=== PATIENT | male | born 2000 | race Two or more races ===

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

== ENCOUNTER 2022-03-11 11:00 | Emergency (ER) | payer OTHER, MEDICAID ==
[~2022-03-11] VITALS: Ht 170.2 cm; Wt 68.0 kg
[2022-03-11 14:42] VITALS: BP 124/69
[2022-03-11] MEDS ORDERED: HYDROmorphone HCL 2 MG/ML VL/or syr IV ONE (14:45)
== END 2022-03-11 15:31 | disposition home or self-care (01) ==
LOC: ER 11:00 → EDBD 11:00 → ER 15:31
DX: S83.014A Lateral dislocation of right patella, initial encounter (principal); X58.XXXA Exposure to other specified factors, initial encounter; Y93.89 Activity, other specified; Y92.89 Other specified places as the place of occurrence of the external cause; Y99.8 Other external cause status
CPT/HCPCS: 27560; 73560; 73562; 99284; J1170

== ENCOUNTER 2023-07-31 14:24 | Emergency (ER) | payer OTHER, MEDICAID ==
[~2023-07-31] VITALS: Ht 162.6 cm; Wt 47.2 kg
[2023-07-31 15:30] VITALS: BP 113/64; PULSE 100; RESP 18; TEMP 99; O2SAT 96
[2023-07-31] MEDS ORDERED: NAPR-746 PO (16:26)
== END 2023-07-31 16:32 | disposition home or self-care (01) ==
LOC: ER 14:24
DX: M70.51 Other bursitis of knee, right knee (principal); Z79.899 Other long term (current) drug therapy
CPT/HCPCS: 73562

== ENCOUNTER 2023-09-17 09:44 | Emergency (ER) | payer MEDICAID ==
[~2023-09-17] VITALS: Ht 175.3 cm; Wt 40.7 kg
[~2023-09-17 09:44] MED LIST: NAPR-746 PO
[2023-09-17 15:22] LABS: Eosinophils # (auto) 0.3 10 ^3/uL (0-0.8); Hemoglobin 8.4 g/dL (13.5-17.5); Monocytes # (auto) 0.5 10 ^3/uL (0-1.3); Neutrophils # (auto) 5.1 10 ^3/uL (1.6-8.6)
[2023-09-17 15:25] LABS: Basophils # (auto) 0.2 10 ^3/uL (0-0.2); Basophils % (auto) 2.1 % (0.0-2.0); Eosinophils % (auto) 3.1 % (0.0-7.0); Hematocrit 26.8 % (41.0-53.0); Lymphocytes % (auto) 24.9 % (10.0-50.0); Mean Corpuscular Hemoglobin 25.8 pg (28.0-32.0); Mean Corpuscular Hgb Conc. 31.3 g/dL (32.0-36.0); Mean Corpuscular Volume 82.2 fL (80.0-100.0); Monocytes % (auto) 6.3 % (0.0-12.0); Neutrophils % (auto) 63.6 % (37.0-80.0); Red Blood Cells 3.26 10^6/uL (4.5-5.90); Red Cell Distribution Width 15.3 % (11.8-14.3)
[2023-09-17 15:42] LABS: Alanine Aminotransferase 91 U/L (7-40); Albumin 4.5 g/dL (3.2-4.8); Alkaline Phosphatase 98 U/L (46-116); Anion Gap 6 (5-15); Aspartate Aminotransferase 46 U/L (13-40); BUN/Creatinine Ratio 17.9 (10.0-20.0); Blood Urea Nitrogen 10 mg/dL (9-23); Carbon Dioxide 29 mmol/L (20-30); Chloride 104 mmol/L (98-107); Glucose 90 mg/dL (74-106); Sodium 139 mmol/L (136-145)
[2023-09-17 15:43] LABS: Bilirubin, Total 0.3 mg/dL (0.2-1.0); Total Protein 8.3 g/dL (5.7-8.2)
[2023-09-17] MEDS ORDERED: FER325T PO (17:02)
[2023-09-17 17:15] VITALS: BP 95/55; PULSE 66; RESP 17; TEMP 98.9; O2SAT 99
== END 2023-09-17 17:17 | disposition home or self-care (01) ==
LOC: ER 09:44
DX: D16.31 Benign neoplasm of short bones of right lower limb (principal); M25.461 Effusion, right knee; D64.9 Anemia, unspecified; Z79.899 Other long term (current) drug therapy
CPT/HCPCS: 36415; 73700; 80053; 85025; 87040